=== PATIENT | female | born 1970 | race Caucasian/White ===

== ENCOUNTER 2016-08-30 03:46 | Emergency (ER) | payer SELFPAY ==
[~2016-08-30] VITALS: Ht 170.1 cm; Wt 74.8 kg
[~2016-08-30 03:46] MED LIST: AEROSPAN80 MCG/Act IH; BACTRIM DS 8001 TA1 PO; BIRTH CONTROL1 EAC1 PO; BUSPAR15 MG PO; CLARITIN10 MG PO; HYDROXYZINE PAM25 M1 PO; LEVAQUIN750 M1 PO; METOPROLOL SR25 MG PO; MOTRIN600 MG PO; ROBITUSSIN DM 105 ML PO; SANCTURA PO; TYLENOL W/CODEI1 TA2 PO; VITAMIN D32000 IU PO
[2016-08-30] MEDS ORDERED: AUGMENTIN 500 M1 TAB PO (04:59)
[2016-08-30] MEDS ORDERED: PREDNISONE20 M1 PO (04:59)
[2016-08-30] MEDS ORDERED: FLONASE ALLERG9.9 ML NAS (04:59)
[2016-08-30] MEDS ORDERED: DUONEB 3 MG/3 ML3 M1 INH (05:19)
== END 2016-08-30 05:31 | disposition home or self-care (01) ==
LOC: ED 03:46
DX: J01.90 Acute sinusitis, unspecified (principal); J20.9 Acute bronchitis, unspecified; Z88.8 Allergy status to other drugs, medicaments and biological substances; Z90.49 Acquired absence of other specified parts of digestive tract

== ENCOUNTER 2018-07-14 19:56 | Emergency (ER) | payer OTHER ==
[~2018-07-14] VITALS: Ht 172.7 cm; Wt 90.7 kg
[~2018-07-14 19:56] MED LIST changes: +AUGMENTIN 500 M1 TAB PO; +DUONEB 3 MG/3 ML3 M1 INH; +FLONASE ALLERG9.9 ML NAS; +PREDNISONE20 M1 PO
[2018-07-14] MEDS ORDERED: PROAIR HFA8.5 GM INH (20:26)
[2018-07-14] MEDS ORDERED: CEFDINIR300 MG PO (20:26)
[2018-07-14] MEDS ORDERED: PREDNISONE20 M1 PO (20:26)
== END 2018-07-14 20:45 | disposition home or self-care (01) ==
LOC: ED 19:56
DX: J20.9 Acute bronchitis, unspecified (principal); Z88.8 Allergy status to other drugs, medicaments and biological substances; Z79.899 Other long term (current) drug therapy

== ENCOUNTER 2020-05-27 12:40 | Emergency (ER) | payer OTHER ==
[~2020-05-27 12:40] MED LIST changes: +CEFDINIR300 MG PO; +PROAIR HFA8.5 GM INH
[2020-05-27] MEDS ORDERED: NAPROXEN250 MG PO (13:55)
[2020-05-27] MEDS ORDERED: TYLENOL325 M1 PO (13:55)
== END 2020-05-27 14:14 | disposition home or self-care (01) ==
LOC: ED 12:40
DX: S39.012A Strain of muscle, fascia and tendon of lower back, initial encounter (principal); Z88.8 Allergy status to other drugs, medicaments and biological substances; Z79.899 Other long term (current) drug therapy; V89.2XXA Person injured in unspecified motor-vehicle accident, traffic, initial encounter; Y93.89 Activity, other specified; Y92.89 Other specified places as the place of occurrence of the external cause; Y99.8 Other external cause status

== ENCOUNTER → 2022-10-30 | Outpatient (CLI) | payer OTHER ==
[~2022-10-30] MED LIST changes: +NAPROXEN250 MG PO; +TYLENOL325 M1 PO
== END | disposition home or self-care (01) ==
LOC: RAD 13:44
PROVIDERS: ATTEND Nurse Practitioner Family
DX: M47.817 Spondylosis without myelopathy or radiculopathy, lumbosacral region (principal); M48.061 Spinal stenosis, lumbar region without neurogenic claudication; M48.07 Spinal stenosis, lumbosacral region

== ENCOUNTER → 2022-11-14 | Outpatient (CLI) | payer OTHER | END | disposition home or self-care (01) | LOC: US 09:53 | PROVIDERS: ATTEND Nurse Practitioner Family | DX: R22.1 Localized swelling, mass and lump, neck (principal) ==

== ENCOUNTER → 2025-01-30 | Outpatient (CLI) | payer OTHER ==
[2025-01-30 15:40] LABS: BUN 17 mg/dl (9-23); FREE T4 1.14 ng/dl (0.89-1.76); LDL CHOLESTEROL 104 mg/dL (9-159); SGPT/ALT 34 U/L (5-49)
== END | disposition home or self-care (01) ==
LOC: LAB 14:44
PROVIDERS: ATTEND Internal Medicine Endocrinology, Diabetes & Metabolism
DX: E65 Localized adiposity (principal); E04.9 Nontoxic goiter, unspecified